=== PATIENT | female | born 1935 | race Caucasian/White ===

== ENCOUNTER 2017-05-28 09:57 | Emergency (ER) | payer MEDICARE, BC, OTHER ==
[2017-05-28] MEDS: ACETAMINOPHEN 500 MG TAB PO (11:31)
== END 2017-05-28 13:23 | disposition home or self-care (01) ==
LOC: E/R 09:57
DX: S20.229A Contusion of unspecified back wall of thorax, initial encounter (principal); R40.2142 Coma scale, eyes open, spontaneous, at arrival to emergency department; R40.2252 Coma scale, best verbal response, oriented, at arrival to emergency department; R40.2362 Coma scale, best motor response, obeys commands, at arrival to emergency department; W07.XXXA Fall from chair, initial encounter; Y92.000 Kitchen of unspecified non-institutional (private) residence as the place of occurrence of the external cause; Z85.3 Personal history of malignant neoplasm of breast; Z85.41 Personal history of malignant neoplasm of cervix uteri
CPT/HCPCS: 72100; 72170; 72220; 99284-25